=== PATIENT | female | born 1955 | race Caucasian/White ===

== ENCOUNTER 2019-09-22 12:37 | Emergency (ER) | payer SELFPAY ==
[~2019-09-22] VITALS: Ht 162.6 cm; Wt 76.2 kg
--- NOTE | 2019-09-22 13:07 | NUR ---
PT IS IN ROOM #2A. DR HOUSER EVALUATED THE PT.
--- NOTE | 2019-09-22 13:39 | NUR ---
PT WAS D/C'D TO HOME. D/C INSTRUCTIONS GIVEN TO THE PT.
[2019-09-22 13:40] VITALS: BP 125/69
== END 2019-09-22 13:41 | disposition home or self-care (01) ==
LOC: ER 12:37
DX: K02.9 Dental caries, unspecified (principal)
CPT/HCPCS: A4663